=== PATIENT | male | born 1960 | race Caucasian/White ===

== ENCOUNTER 2025-06-30 09:14 | Emergency (ER) | payer OTHER, SELFPAY ==
--- OUTSIDE RECORDS SUMMARY | 2025-06-25 17:16 | XMS_ITS | Encounter Summary ---
Author Organization [facility] Address [address] [place] [address] Care Team Providers Care Software Project Engineer Name Role Phone Physician, No Pcp Primary Care Provider Unavaila ble Reason for Referral * Consultation (Routine) - Closed Specialty Diagnoses / Procedures Referred By Zully erwin Referred To Contact Family Medicine Diagnoses Encounter to establish care Albaro Leblanc MD [address] [place] [address] Phone: tel: fax: External Performed Referral ID Status Reason Start Date Expiration Date V isits Requested Visits Authorized [id number] Closed Specialty Services Required 06/25/2025 06/25/2026 1 1 Reason for Visit * Reason Comments Weakness - Generalized Coffeen lethargic on wednesday Leg Pain Lower left leg pain Encounter Details Date Type Department Care Team (Late st Contact Info) Description 06/25/2025 5:16 PM EST - 06/25/2025 6:06 PM EST Emergency [facility] Emergency [address] [place] [address] Albaro Leblanc MD [address] [place] [address] Anxiety (Primary Dx); Generalized weakness Discharge Disposition: Home or Self Care Social History Tobacco Use Types Packs/Day Years Used Date Smoking Tobacco: Never Smokeless Tobacco: Never Sex and Gender Information Value Date Recorded Sex Assigned at Not on file Legal Sex Male 5:02 PM EST Gender Identity Not on file Sexual Orientation Not on file documented as of this encounter Last Filed Vital Signs Vital Sign Reading Time Taken Comments Blood Pressure 139/95 06/25/2025 2:23 PM EST Pulse 89 06/25/2025 2:23 PM EST Temperature 36.7 C (98.1 F) 06/25/2025 2:23 PM EST Respiratory Rate 18 06/25/2025 2:23 PM EST Oxygen Saturation 95% 06/25/2025 2:23 PM EST Inhaled Oxygen Concentration - - Weight 120 kg (265 lb) 06/25/2025 2:23 PM EST Height 177.8 cm (5' 10 ) 06/25/2025 2:23 PM EST Body Mass Index 38.02 06/25/2025 2:23 PM EST documented in this encounter Discharge Instructions * Attachments The following attachments cannot be sent through Care Everywhere. * Fatigue ([place]) * Weakness: Generalized ([place]) * Anxiety: What Is It?: Video ([place]) documented in this encounter Discharge Disposition Disposition Code Departure Means Destination Comment s Home or Self Care documented in this encounter Progress Notes * Sarahi Lopez RN - 06/25/2025 6:02 PM EST 1748: EKG done with second troponin however while meeting the patient and after accomplishing thesetasks provider came in and stated no longer needed and was ok to discharge. * Saurav Echols MD - 06/25/2025 2:23 PM EST 64-year-old male with no past medical history who presents for a episode of feeling heavy while at work. Patient now states he feels fine. There is no associated chest pain shortness of breath dizziness lightheadedness tachycardia palpitations blurred vision double vision or tunnel vision. Primary concern would be for cardiac etiology, evaluate troponin and EKG. * Keisha Ngo RN - 06/25/2025 2:22 PM EST Pt to ED reports felt heavy all over and overwhelmed while at work. Denies pain at this time. Pt reports left lower leg discomfort. No injury. No redness noted at this time, skin warm, dry and pink. Pt denies any chest pain. No dizziness. No sob * Albaro Leblanc MD - 06/25/2025 2:01 PM EST HPI Chief Complaint Patient presents with Weakness - Generalized Coffeen lethargic on wednesday Leg Pain Lower left leg pain Yimi is a 64-year-old male with no known chronic medical problems who presents after an episode 3 days ago of feeling lightheaded, generalized heaviness and feeling overwhelmed. The symptoms happened 3 days ago and spontaneously subsided. He had a milder episode of the symptoms earlier today, but now he states he feels back to baseline and feels fine. Denies headache, no nasal congestion, no fevers, no ear pain, no sore throat, no chest pain, no shortness of breath, no palpitations, no abdominal pain, no urinary discomfort, no melena, no rectal bleeding, no nausea vomiting or diarrhea.Patient states he does not take any medications. Arrives alert and oriented x 4 without focal neurologic deficits. Speaking lucidly. No suicidal ideation, no homicidal ideation. Normal mood and affect in the ED. No data recorded Patient History Medical History[1] Surgical History[2] Family History[3] Social History Tobacco Use Smoking status: Never Smokeless tobacco: Never Substance Use Topics Alcohol use: Not on file Drug use: Not on file Review of Systems Review of Systems Physical Exam ED Triage Vitals [06/25/25 1423] Temp Heart Rate Resp BP 36.7 ??C (98.1 ??F) 89 18 (!) 139/95 SpO2 Temp Source Heart Rate Source Patient Position 95 % Oral -- -- BP Location FiO2 (%) -- -- Physical Exam ED Course & MDM Clinical Impressions as of 06/25/25 1748 Anxiety Generalized weakness Medical Decision Making Differential diagnosis includes cardiac etiology, psychiatric etiology, viral syndrome Patient with reassuring workup today, states he feels back to baseline. EKG nonischemic, troponin negative. Heart score 0, doubt acute coronary syndrome. Chest x-ray clear. Labs otherwise reassuring. Reevaluation, patient stable for discharge, gave patient referral to primary care. Gave patient instructions to return immediately to emergency department any worsening concerning symptoms. Patient discharged in stable condition. Amount and/or Complexity of Data Reviewed Labs: ordered. Radiology: ordered and independent interpretation performed. ECG/medicine tests: ordered and independent interpretation performed. Details: EKG ordered interpreted by me with normal sinus rhythm heart rate 92 normal intervals normal axis no ST elevation no ST depression DISPOSITION/PLAN Discharge 06/25/2025 05:46:50 PM The following medications were prescribed in order to continue the patient's treatment as an outpatient if they ultimately can be safely discharged: Your medication list You have not been prescribed any medications. FINAL IMPRESSION DIAGNOSES: 1. Anxiety 2. Generalized weakness I stressed the importance of prompt follow-up was stressed to the patient and they were advised to follow-up as below, I advised patient to return immediately to the Emergency Department with any worsening or concerning symptoms or if the patient is unable to follow up. The patient voiced understanding and agreement with plan for treatment, plan for follow up, and return precautions. Follow up with: Your primary care doctor Albaro Leblanc MD (electronically signed) 5:49 PM EST 06/25/2025 [1] Past Medical History: Diagnosis Date No pertinent past medical history [2] No past surgical history on file. [3] No family history on file. Albaro Leblanc MD 06/25/25 2480 documented in this encounter Plan of Treatment Scheduled Referrals Name Type Priority Associated Diagnoses Order Schedule Ambulatory referral to Family Practice Outpatient Referral Routine 1 Occurre nces starting 06/25/2025 until 06/25/2026 documented as of this encounter Procedures Procedure Name Priority Date/Time Associated Diagnosis Comments ECG ANNOTATED 06/26/2025 ECG 12-LEAD STAT 06/25/2025 5:48 PM EST XR CHEST 2 VIEWS STAT 06/25/2025 3:22 PM EST ECG 12-LEAD STAT 06/25/2025 2:35 PM EST TROPONIN I HIGH SENSITIVITY Timed 06/25/2025 2:30 PM EST CBC WITH AUTO DIFFERENTIAL STAT 06/25/2025 2:30 PM EST CBC AND DIFFERENTIAL STAT 06/25/2025 2:30 PM EST B-TYPE NATRIURETIC PEPTIDE STAT 06/25/2025 2:30 PM EST MAGNESIUM STAT 06/25/2025 2:30 PM EST LIPASE STAT 06/25/2025 2:30 PM EST COMPREHENSIVE METABOLIC PANEL STAT 06/25/2025 2:30 PM EST documented in this encounter Results * ECG-Annotated (06/26/2025) us Provider Ongwendolyn PEARSON ECG ORDERABLES Final Result * ECG 12 lead (06/25/2025 5:48 PM EST) Ventricular Rate ECG 87 BPM GEMUSE Atrial Rate 87 BPM GEMUSE P-R Interval 148 ms GEMUSE QRS Duration 94 ms GEMUSE Q-T Interval 376 ms GEMUSE QTc 452 ms GEMUSE P Wave [place] 28 degrees GEMUSE R [place] 2 degrees GEMUSE T [place] 10 degrees GEMUSE ECG Interpretation Normal sinus rhythm Inferior infarct (cited on or before 25-JUN-2025) Abnormal ECG When compared with ECG of 25-JUN-2025 14:35, No significant change was found Confirmed by ELIER VIRGEN ([id number]) on 06/26/2025 7:07:22 PM GEMUSE 06/25/2025 5:48 PM EST 06/26/2025 7:07 PM EST us Saurav Echols MD ECG ORDERABLES Final Result GEMUSE * XR Chest 2 Views (06/25/2025 3:22 PM EST) Anatomical Region Laterality Modality Body Radiographic Scarlet ging 06/25/2025 4:46 PM EST Impressions 06/25/2025 4:46 PM EST FINDINGS/IMPRESSION: Normal heart size and pulmonary vascularity. Lungs are clear and costophrenic angles are sharp. No acute osseous abnormality. -------- FINAL REPORT -------- Dictated By: Zaynab Bullard Dictated Date: 06/25/2025 16:46 ET Assigned Physician: Zaynab Bullard Reviewed and Electronically Signed By: Zaynab Bullard Signed Date: 06/25/2025 16:46 ET Workstation ID: [id number] Transcribed By: Self Edit Transcribed Date: 06/25/2025 16:46 ET Narrative 06/25/2025 4:46 PM EST XR CHEST 2 VIEWS INDICATION: chest pain TECHNIQUE: XR CHEST 2 VIEWS COMPARISON: None Procedure Note Zaynab Bullard MD - 06/25/2025 XR CHEST 2 VIEWS INDICATION: chest pain TECHNIQUE: XR CHEST 2 VIEWS COMPARISON: None IMPRESSION: FINDINGS/IMPRESSION: Normal heart size and pulmonary vascularity. Lungsare clear and costophrenic angles are sharp. No acute osseousabnormality. -------- FINAL REPORT -------- Dictated By: Zaynab Bullard Dictated Date: 06/25/2025 16:46 ET Assigned Physician: Zaynab Bullard Reviewed and Electronically Signed By: Zaynab Bullard Signed Date: 06/25/2025 16:46 ET Workstation ID: [id number] Transcribed By: Self Edit Transcribed Date: 06/25/2025 16:46 ET Saurav Echols MD IMG XR PROCEDURES Final Result * ECG 12 lead (06/25/2025 2:35 PM EST) Ventricular Rate ECG 92 BPM GEMUSE Atrial Rate 92 BPM GEMUSE P-R Interval 150 ms GEMUSE QRS Duration 100 ms GEMUSE Q-T Interval 374 ms GEMUSE QTc 462 ms GEMUSE P Wave [place] 43 degrees GEMUSE R [place] 29 degrees GEMUSE T [place] 24 degrees GEMUSE ECG Interpretation Normal sinus rhythm Possible Inferior infarct , age undetermined Abnormal ECG When compared with ECG of 23-AUG-2024 12:24, No significant change was found Confirmed by Jose De Jesus PARKER JAMES ([id number]) on 06/25/2025 5:49:10 PM GEMUSE 06/25/2025 2:35 PM EST 06/25/2025 5:49 PM EST us Saurav Echols MD ECG ORDERABLES Final Result GEMUSE * CBC auto differential (06/25/2025 2:30 PM EST) WBC 8.9 4.8 - 10.8 K/mcL LAB HEMETOLOGY METHOD 06/25/2025 3:03 PM [facility] RBC 4.80 4.50 - 5.50 M/mcL LAB HEMETOLOGY METHOD 06/25/2025 3:03 PM [facility] Hemoglobin 14.9 13.5 - 17.5 g/dL LAB HEMETOLOGY METHOD 06/25/2025 3:03 PM [facility] Hematocrit 43.7 42.0 - 54.0 % LAB HEMETOLOGY METHOD 06/25/2025 3:03 PM [facility] MCV 91.4 79.0 - 98.0 FL LAB HEMETOLOGY METHOD 06/25/2025 3:03 PM [facility] MCH 31.2 27.0 - 32.0 pcg LAB HEMETOLOGY METHOD 06/25/2025 3:03 PM [facility] MCHC 34.1 32.0 - 37.0 g/dL LAB HEMETOLOGY METHOD 06/25/2025 3:03 PM [facility] RDW 12.1 11.0 - 15.0 % LAB HEMETOLOGY METHOD 06/25/2025 3:03 PM [facility] Platelets 231 130 - 400 K/mcL LAB HEMETOLOGY METHOD 06/25/2025 3:03 PM [facility] MPV 8.9 7.0 - 11.0 FL LAB HEMETOLOGY METHOD 06/25/2025 3:03 PM [facility] NRBC 0.0 <1.0 % LAB HEMETOLOGY METHOD 06/25/2025 3:03 PM [facility] NRBC Absolute 0.00 <0.10 K/mcL LAB HEMETOLOGY METHOD 06/25/2025 3:03 PM [facility] Neutrophils Relative 55.0 % LAB HEMETOLOGY METHOD 06/25/2025 3:03 PM [facility] Lymphocytes Relative 35.1 % LAB HEMETOLOGY METHOD 06/25/2025 3:03 PM [facility] Monocytes Relative 6.1 % LAB HEMETOLOGY METHOD 06/25/2025 3:03 PM [facility] Eosinophils Relative 2.8 % LAB HEMETOLOGY METHOD 06/25/2025 3:03 PM [facility] Basophils Relative 0.8 % LAB HEMETOLOGY METHOD 06/25/2025 3:03 PM [facility] Immature Granulocytes Relative 0.2 % LAB HEMETOLOGY METHOD 06/25/2025 3:03 PM [facility] Neutrophils Absolute 4.87 1.50 - 7.00 K/mcL LAB HEMETOLOGY METHOD 06/25/2025 3:03 PM [facility] Lymphocytes Absolute 3.11 1.00 - 5.00 K/mcL LAB HEMETOLOGY METHOD 06/25/2025 3:03 PM [facility] Monocytes Absolute 0.54 0.20 - 1.00 K/mcL LAB HEMETOLOGY METHOD 06/25/2025 3:03 PM [facility] Eosinophils Absolute 0.25 0.00 - 0.50 K/mcL LAB HEMETOLOGY METHOD 06/25/2025 3:03 PM [facility] Basophils Absolute 0.07 0.00 - 0.20 K/mcL LAB HEMETOLOGY METHOD 06/25/2025 3:03 PM EST [facility] Immature Granulocytes Absolute 0.02 0.00 - 0.03 K/[facility] LAB HEMETOLOGY METHOD 06/25/2025 3:03 PM EST [facility] Blood Venous blood specimen / Unknown Venipuncture / Unknown 06/25/2025 2:30 PM EST 06/25/2025 2:57 PM EST Saurav Echols MD LAB BLOOD ORDERABLES Final Resu lt [facility] [address] [place] [address], [place] [phone] * Troponin I high sensitivity (06/25/2025 2:30 PM EST) High Sensitivity Troponin I <3 <=53 ng/L 06/25/2025 3:22 PM EST [facility] Blood Venous blood specimen / Unknown Venipuncture / Unknown 06/25/2025 2:30 PM EST 06/25/2025 2:57 PM EST Saurav Echols MD LAB BLOOD ORDERABLES Final Resu lt [facility] [address] [place] [address], [place] [phone] * B-type natriuretic peptide (06/25/2025 2:30 PM EST) BNP 11 <=100 pcg/mL 06/25/2025 3:22 PM EST [facility] Blood Venous blood specimen / Unknown Venipuncture / Unknown 06/25/2025 2:30 PM EST 06/25/2025 2:57 PM EST Narrative [facility] - 06/25/2025 3:22 PM EST Over the counter supplements containing high doses of biotin may interfere with this assay. If interference is suspected, patients shoud be retested after refraining from biotin supplements for 72 hours. us Saurav Echols MD LAB BLOOD ORDERABLES Final Resu lt Performing Organization Address City/[facility]/ZIP Co de Phone Number [facility] [address] [place] [address], [place] [phone] * Magnesium (06/25/2025 2:30 PM EST) Pathologist [facility] Magnesium 1.9 1.9 - 2.6 mg/dL 06/25/2025 3:25 PM EST [facility] Blood Venous blood specimen / Unknown Venipuncture / Unknown 06/25/2025 2:30 PM EST 06/25/2025 2:57 PM EST us Saurav Echols MD LAB BLOOD ORDERABLES Final Resu lt Performing Organization Address [facility]/ZIP Co de Phone Number [facility] [address] [place] [address], [place] [phone] * Lipase (06/25/2025 2:30 PM EST) [facility] Lipase 35 12 - 53 unit/L 06/25/2025 3:25 PM EST [facility] Blood Venous blood specimen / Unknown Venipuncture / Unknown 06/25/2025 2:30 PM EST 06/25/2025 2:57 PM EST us Saurav Echols MD LAB BLOOD ORDERABLES Final Resu lt Performing Organization Address City/[facility]/ZIP Co de Phone Number [facility] [address] [place] [address], [place] [phone] * (ABNORMAL) Comprehensive metabolic panel (06/25/2025 2:30 PM EST) [facility] Sodium 141 133 - 145 mmol/L 06/25/2025 3:25 PM [facility] Potassium 3.8 3.5 - 5.5 mmol/L 06/25/2025 3:25 PM [facility] Chloride 104 96 - 110 mmol/L 06/25/2025 3:25 PM [facility] CO2 25 21 - 32 mmol/L 06/25/2025 3:25 PM [facility] Anion Gap 12(H) 3 - 11 06/25/2025 3:25 PM [facility] Glucose 125(H) 70 - 100 mg/dL 06/25/2025 3:25 PM [facility] BUN 16 5 - 25 mg/dL 06/25/2025 3:25 PM [facility] Creatinine 1.07 0.70 - 1.30 mg/dL 06/25/2025 3:25 PM [facility] eGFR 78 >=60 mL/min/1. 73m2 06/25/2025 3:25 PM [facility] Comment:Calculation based on the Chronic Kidney Disease Epidemiology Collaboration (CKD-EPI) equation refit without adjustment for race. BUN/Creatinine Ratio 15.0 06/25/2025 3:25 PM [facility] Calcium 9.1 8.5 - 10.5 mg/dL 06/25/2025 3:25 PM [facility] AST (SGOT) 23 10 - 42 unit/L 06/25/2025 3:25 PM [facility] ALT (SGPT) 28 10 - 60 unit/L 06/25/2025 3:25 PM [facility] Alkaline Phosphatase 64 42 - 121 unit/L 06/25/2025 3:25 PM [facility] Total Protein 6.7 6.0 - 8.0 g/dL 06/25/2025 3:25 PM [facility] Albumin 4.2 3.2 - 5.0 g/dL 06/25/2025 3:25 PM EST [facility] Total Bilirubin 0.2 0.0 - 1.4 mg/dL 06/25/2025 3:25 PM EST [facility] Blood Venous blood specimen / Unknown Venipuncture / Unknown 06/25/2025 2:30 PM EST 06/25/2025 2:57 PM EST us Saurav Echols MD LAB BLOOD ORDERABLES Final Resu lt [facility] [address] [place] [address], [place] [phone] documented in this encounter Visit Diagnoses Diagnosis Anxiety- Primary Anxiety state, unspecified Generalized weakness documented in this encounter Care Teams Software Project Engineer Relationship Specialty Start Date End Date Physician, No Pcp PCP - General 06/25/25 documented as of this encounter
--- NOTE | ~2025-06-30 | XR_ITS ---
CLINICAL HISTORY: pain 3 view left ankle Comparison: None provided Findings: No acute fractures or dislocations. Surgical hardware in place overlying distal fibula and medial malleolus. There is radiolucency around the entry site of the medial malleolar screws. Correlate for osteomyelitis. The findings may also be related to nonspecific reactive changes or loosening. No significant loss of joint space, osteophytes, or erosions. No ankle effusion. No other radiopaque foreign body. IMPRESSION: 1. Findings at entry site of medial malleolar screws, differential considerations noted. Clinical follow-up recommended. This document has been electronically signed by: Brendon Ann MD on 06/30/2025 11:25:41
--- NOTE | ~2025-06-30 | XR_ITS ---
CLINICAL HISTORY: pain 4 view left knee Comparison: None provided Findings: No fractures or dislocations. No significant loss of joint space, osteophytes, or erosions. No joint effusion. No radiopaque foreign body. IMPRESSION: 1. No acute findings. This document has been electronically signed by: Brendon Ann MD on 06/30/2025 11:22:22
[2025-06-30 09:32] VITALS: BP 165/70; PULSE 91; RESP 18; TEMP 36.3; O2SAT 95; BMI 38.4
--- NOTE | 2025-06-30 10:15 | ED.GENADULT ---
HPI - General Adult General Chief complaint: Extremity Injury, Lower Stated complaint: left leg issue Time Seen by Provider: 06/30/25 12:51 Source: patient Mode of arrival: ambulatory Limitations: no limitations History of Present Illness ED Provider: DARIANA MORRIS PA-C HPI narrative: 64 year old female presents to the ED today for evaluation of left ankle and left knee pain x1 month. Reports previous injury to the left leg over 30 years ago which required hardware placement in the ankle. Denies new injury or trauma. He states that symptoms began when he started a new job approximately 1 month ago where he is on his feet more often. Reports taking 2 Tylenol last night without improvement in pain. He currently rates pain 1/10 to the left ankle and knee. Denies hx DM or VTE. No thinners. Denies fever, chills, numbness/tingling/weakness of the LLE, swelling or redness to the LLE, chest pain, SOB. Related Data Previous Rx's ?Medication ?Instructions ?Recorded diclofenac sodium 1 % topical gel 4 g topical QID #100 grams 06/30/25 Allergies Allergy/AdvReac Type Severity Reaction Status Date / Time No Known Allergies Allergy Verified 06/30/25 09:35 Review of Systems Review of Systems: Yes all other systems are reviewed and are negative PMFSH Past Medical History Attestation statement: The following information was validated with the patient. Source: old records reviewed and nursing notes reviewed Physical Exam ED Vital Signs: Vital Signs - 24 hr 06/30/25 09:32 06/30/25 13:18 06/30/25 13:29 Temperature 97.3 F 98.3 F 98.3 F Pulse Rate 91 74 74 Respiratory Rate 18 18 18 Blood Pressure 165/70 H 137/86 137/86 Pulse Oximetry 95 98 98 Oxygen Delivery Method Room Air Room Air Room Air BMI result Body Mass Index 38.4 hypertensive, vitals are otherwise wnl General: Well appearing, in no acute distress. Skin: Warm, dry, intact. No rashes or lesions. Head: Normocephalic, atraumatic. EENT: Hearing is intact b/l. Conjunctiva clear. PERRLA. EOM intact. Moist mucous membranes.? Cardiac: Chest wall symmetric. RRR Lungs: Normal respiratory effort without accessory muscle use. CTA bilaterally Back: No midline spinous or paraspinal tenderness. No step off deformity. Ext: +on exam of L knee and ankle, there is no overlying joint swelling or erythema, no overlying wounds. no reproducible tenderness. FROM intact to L knee, ankle, and toes without reported pain. SILT. DP/PT /popliteal pulse intact. No calf tenderness. ambulating with steady gait. Neuro: AOx3. Normal speech. Course Course Course Narrative: Rapid medical examination performed in triage by Estelle Austin PA-C: Patient is a 64 year old male presenting to the emergency department with left knee and left ankle pain. Detailed physical exam and review of systems are deferred to the commercial collections specialist. Imaging ordered. Patient placed back in the waiting room pending room availability and results. Reevaluation(s) Reevaluation #1: X-ray left ankle showing cervical hardware in place overlying distal fibula and medial malleolus with radiolucency around the entry site with a medial malleolar screws correlate for osteomyelitis however if findings may be related to nonspecific reactive changes or loosening. Patient does not have a history of diabetes. There is no overlying skin wound or cellulitic changes. I do not have concern for osteomyelitis at this time. Likely related to hardware being placed over 30 years ago. Advised pain control and outpatient follow up. Patient has remained stable throughout ED visit today. Discussed worrisome signs and symptoms and when to return to the ED. All questions answered at this time. Patient is agreeable with disposition and stable for discharge. Medications Administered Discontinued Medications Generic Name Dose Route Start Last Admin Trade Name Freq PRN Reason Stop Dose Admin Ibuprofen 800 mg 06/30/25 13:19 06/30/25 13:26 Ibuprofen 800 Mg Tablet PO 06/30/25 13:20 800 mg ONCE ONE Administration Medical Decision Making Medical Decision Making [facility] Narrative: 64 year old female presents to the ED today for evaluation of left ankle and left knee pain x1 month. vital signs stable. he is well appearing and in NAD. On exam of L knee and ankle, there is no overlying joint swelling or erythema, no overlying wounds. no reproducible tenderness. FROM intact to L knee, ankle, and toes without reported pain. SILT. DP/PT /popliteal pulse intact. No calf tenderness. Ambulating with steady gait. Differential diagnosis includes arthritis, MSK sprain/strain, hardware malfunction, fracture. Less likely gout, pseudogout. Unlikely septic joint, osteomyelitis, DVT. Plan for imaging, pain control, re-evaluation. Differential Diagnosis Differential Diagnoses: The differential diagnosis associated with the presentation includes as above. Admission/Observation not indicated. Lab Data MDM Lab Attestation statement: I reviewed the patient's lab results. as above. 06/30/25 12:25 06/30/25 12:25 Labs: Lab Results 06/30/25 Range/Units 12:25 WBC 8.5 (4.8-10.8) X10*3/uL RBC 4.99 (4.60-5.80) X10*6/uL Hgb 15.2 (14.0-18.0) g/dl Hct 45.6 (42.0-52.0) % MCV 91.4 (80.0-98.0) fL MCH 30.5 (27.0-33.0) pg MCHC 33.3 (31.0-36.0) g/dl RDW 12.4 (11.0-16.0) % Plt Count 210 (160-400) X10*3/uL MPV 8.5 L (9.4-12.4) fL Immature Gran % (Auto) 0.2 (0.0-0.4) % Neut % (Auto) 56.8 (45-73) % Lymph % (Auto) 33.3 (20-40) % [place] % (Auto) 6.2 (2-11) % Eos % (Auto) 2.6 (0-4) % Baso % (Auto) 0.9 (0-2) % Lymph # (Auto) 2.8 (1.2-4.9) X10*3/uL [place] # (Auto) 0.5 (0.1-1.2) X10*3/uL Eos # (Auto) 0.2 (0.0-0.4) X10*3/uL Baso # (Auto) 0.1 (0.0-0.2) X10*3/uL Abs Immat Gran (auto) 0.02 (0.00-0.03) X10*3/uL Absolute Neuts (auto) 4.8 (2.0-8.3) x10*3/uL Absolute Nucleated RBC 0.000 (0.0-0.012) X10*3/uL Nucleated RBC % (auto) 0.0 (0.0-0.2) /100WBC ESR 17 (1-20) MM/HR Sodium 140 (135-145) mmol/L Potassium 3.7 (3.3-5.1) mmol/L Chloride 108 (96-108) mmol/L Carbon Dioxide 24 (22-29) mmol/L Anion Gap 12 (12-20) BUN 16 (9-16) mg/dL Creatinine 1.03 (0.5-1.4) mg/dL Estim Creat Clear Calc 97.1 Estimated GFR > 60 Random Glucose 90 (60-115) mg/dL Lactic Acid 0.8 (0.5-2.0) mmol/L Calcium 9.6 (8.4-10.2) mg/dL Magnesium 2.1 (1.6-2.6) mg/dL Total Bilirubin 0.4 (0.0-1.0) mg/dL AST 33 (5-37) U/L ALT 38 (0-40) U/L Alkaline Phosphatase 61 (39-117) U/L C-Reactive Protein 0.12 (< or = 0.50) mg/dL Total Protein 7.2 (6.5-8.0) g/dL Albumin 4.6 (3.5-5.0) g/dL Independent Interpretation I performed an independent interpretation of an: Plain X-Ray Interpretation: xr L ankle without acute fracture xr L knee without acute fracture Radiology Impression Discussion of test interpretation with radiology: I have reviewed the radiologist's reading. Radiologist Impression: Procedure(s): XR ankle LT min 3V Accession Number(s): [id number] cc: Estelle Austin PA; Physician,None ~ Reason for Exam: pain ADDENDUMThis document has been electronically signed by: Brendon Ann MD on 06/30/2025 11:25:41 ADDENDUM: This report was discussed with Norman Mccabe on Jun 30, 2025 11:40:00 EST. This document has been electronically signed by: Faraz Crowe on 06/30/2025 11:40:35 Addendum Dictated By: Brendon Ann MD Addendum Signed By: <Electronically signed by Brendon Ann MD in OV> 06/30/25 1141 Addendum Cosigned By: DD/ TD/TT: 06/30/25 CLINICAL HISTORY: pain 3 view left ankle Comparison: None provided Findings: No acute fractures or dislocations. Surgical hardware in place overlying distal fibula and medial malleolus. There is radiolucency around the entry site of the medial malleolar screws. Correlate for osteomyelitis. The findings may also be related to nonspecific reactive changes or loosening. No significant loss of joint space, osteophytes, or erosions. No ankle effusion. No other radiopaque foreign body. IMPRESSION: 1. Findings at entry site of medial malleolar screws, differential considerations noted. Clinical follow-up recommended. This document has been electronically signed by: Brendon Ann MD on 06/30/2025 11:25:41 Prescription Management I considered prescription management with: Pain Medication Social Determinants Patient?s care significantly limited by Social Determinants of Health including: Other Social Determinant of Health Critical Care Time Critical Care Time Critical Care Time: No Discharge Plan Discharge Clinical Impression: Ankle pain, Knee pain Patient Disposition: Home, Self-Care Instructions: Arthritis (ED) Additional Instructions: You were evaluated in the ED today for left ankle/knee pain. As discussed, the xray of your left ankle shows loosening of the screws in your hardware. This is less likely infectious given your stable vitals and normal blood work. Your blood was sent to the lab to see if there is any bacterial growth - you will be contact in a few days with any abnormal findings that may warrant treamtent with antibiotics. This is more likely a normal finding given your history of surgery >30 years ago. I am prescribing diclofenac cream, you may apply this to your ankle and knee as needed for pain. Elevate your ankle above heart level while resting. Apply ice for 20 minutes at a time. Follow up with PCP and ortho. I have provided you with a referral, call them to establish care, they will not call you. Return with any new or worsening symptoms. In the case of an emergency call 911. Prescriptions: New diclofenac sodium 1 % gel 4 g topical QID Qty: 100 0RF Rx Instructions: apply to single knee, ankle, foot; for foot includes sole/toes/top of foot Referrals: [facility] [place] Orthopedic Surgeons [Provider Group] Physician,None [Primary Care Provider, Medical] Stand Alone Forms: Work/School Release Interventions: ED Discharge Assessment Last Done: 12/27/25 13:29 Discharge Date/Time: 06/30/25 13:30 Print Language: Syriac
[2025-06-30 12:31] LABS: MANUAL DIFF FLAG NO
[2025-06-30 12:33] LABS: Hematocrit 45.6 % (42.0-52.0); Hemoglobin 15.2 g/dl (14.0-18.0); Imm Gran Abs Auto 0.02 X10*3/uL (0.00-0.03); Imm Gran Pct Auto 0.2 % (0.0-0.4); Lymphocytes Absolute Auto 2.8 X10*3/uL (1.2-4.9); Mean Corpuscular HGB Conc 33.3 g/dl (31.0-36.0); Mean Corpuscular Hemoglobin 30.5 pg (27.0-33.0); Mean Corpuscular Volume 91.4 fL (80.0-98.0); NRBC Abs Auto 0.000 X10*3/uL (0.0-0.012); NRBC Pct Auto 0.0 /100WBC (0.0-0.2); Platelet Count 210 X10*3/uL (160-400); Red Blood Count 4.99 X10*6/uL (4.60-5.80); White Blood Count 8.5 X10*3/uL (4.8-10.8)
[2025-06-30 12:47] LABS: Alanine Aminotransferase 38 U/L (0-40); Albumin Level 4.6 g/dL (3.5-5.0); Alkaline Phosphatase 61 U/L (39-117); Anion Gap 12 (12-20); Aspartate Amino Transferase 33 U/L (5-37); Blood Urea Nitrogen 16 mg/dL (9-16); Calcium 9.6 mg/dL (8.4-10.2); Carbon Dioxide 24 mmol/L (22-29); Chloride 108 mmol/L (96-108); Creatinine Clr Calc Pharmacy 97.1; Estimated Glomerular Filt Rate > 60; Magnesium 2.1 mg/dL (1.6-2.6); Potassium 3.7 mmol/L (3.3-5.1); Sodium 140 mmol/L (135-145); Total Protein 7.2 g/dL (6.5-8.0)
--- OUTSIDE RECORDS SUMMARY | 2025-06-30 13:06 | XMS_ITS | Clinical Summary ---
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 Not on chetna e 07/02/2023 Are you concerned about learning? Not on file 07/02/2023 No 07/02/2023 No 07/02/2023 Digital Access Answer Date Recorded No 07/02/2023 No 07/02/2023 Reliable internet access at home? Not on file 07/02/2023 Device with a working camera? Not on file Sex and Gender Information Value Date Recorded Sex Assigned at Not on file Legal Sex Male 2:11 PM EDT Gender Identity Not on file Sexual Orientation Not on file Plan of Treatment Health Maintenance Due Date Last Done Comments Adult Td,Tdap Booster 1962 LIPID PANEL 1962 DEPRESSION SCREENING 1974 SMOKING Hx and SMOKELESS TOB ACCO SCREENING 1975 HEPATITIS C SCREENING 1980 HIV ONE-TIME SCREENING (18-6 5 YEARS) 1980 COLOGUARD 2007 COLONOSCOPY 2007 COLORECTAL CANCER SCREENING 2007 FIT TEST 2007 FOBT 2007 SIGMOIDOSCOPY 2007 VIRTUAL COLONOSCOPY 2007 PNEUMOCOCCAL VACCINES (50+ y ears) (1 of 1 - PCV) 2012 ZOSTER VACCINES (1 of 2) 2012 INFLUENZA VACCINE (#1) 2025 COVID-19 VACCINE ( - 2024-2 6 season) 2025 RSV VACCINE (1 - 1-dose 75+ series) 2037 HEPATITIS A VACCINES Aged Out No long er eligible based on patient's age to complete this topic HIB VACCINES Aged Out No longer eligi ble based on patient's age to complete this topic MENINGOCOCCAL VACCINES (ACWY) Aged Out No longer eligible based on patient's age to complete this topic MENINGOCOCCAL VACCINES (B) Aged Out N o longer eligible based on patient's age to complete this topic Medical Devices Not on file Additional Source Comments The information contained in this document represents components of the legal health record. It is not the complete legal health record.[facility]
--- OUTSIDE RECORDS SUMMARY | 2025-06-30 13:06 | XMS_ITS | Data Portability ---
Author Organization [facility], [address] Address [address] [place] [address] Care Team Providers Care Office Aide Name Role Phone ANN MARIE FREEMAN Bar Roller Assessment No assessment recorded. Plan of Treatment Reminders Order Date Submit Date Provider Last Modified By Organization Details Last Modified Time Details Appointments None record ed. Lab None record ed. Referral None record ed. Procedures None record ed. Surgeries None record ed. Imaging None record ed. Medication Orders None record ed. Patient TargetsNo targets recorded. Patient InstructionsNo instructions recorded. Reason for Referral None Reported. Procedures Surgical History Date Name Laterality Status Provider Name and Address Organization Details Recorded Time OC-UDS Send Out Template NON DOT completed [facility] 06/26/2022 12:10:01 Imaging Results None recorded. Procedure Notes None recorded. Medical Equipment None Reported. Vitals None Recorded Social History None recorded. Functional Status None recorded. Mental Status None recorded. Family History Nothing Reported. Medical History No medical history recorded. Past Encounters Encounter ID Performer Location Encounter Start Date Encounter Closed Date Diagnosis/Indication Diagnosis SNOMED-CT Code Diagnosis ICD10 Code Diagnosis IMO Codes Diagnosis Note [id number] [address] [place] [address] 11/03/2021 08:03:34 11/03/2021 08:47:15 [id number] [address] [place] [address] 08/20/2021 12:21:49 08/20/2021 13:43:45 [id number] [address] [place] [address] 10/01/2021 10:41:18 10/01/2021 11:32:43 [id number] [address] [facility] [place] [address] 08/27/2021 11:26:44 08/27/2021 13:30:34 [id number] NAOMI SCHILLING [place] [address] [place] [address] 06/26/2022 09:06:41 06/26/2022 14:21:31 History and physical examination, pre-employment 142672630 Z02.1 Health Concerns Section Related Observation LastModified by Organization Detai ls LastModified Time None Recorded Concern Status LastModified by Organization Details LastModified Time None Recorded Advance Directives Directive None Recorded Payers Insurance Date Sequence Insurance Name Policy Number Policy Keene Covered Member ID Keene Member ID Guarantor Name 06/03/2022 [employer] Decision One Yimi Gillis 06/26/2022 OC-ESCREEN Yimi Gillis [id number] Yimi Gillis
--- OUTSIDE RECORDS SUMMARY | 2025-06-30 13:06 | XMS_ITS | Clinical Summary ---
Author Organization [facility] Address [address] [place] [address] Phone Care Team Providers Care Rd Manager Name Role Phone Physician, No Pcp Primary Care Provider Unavaila ble Allergies No known active allergies Medications No known medications Encounters Date Type Department Care Team Description 06/25/2025 5:16 PM EST - 06/25/2025 6:06 PM EST Emergency [facility] Emergency [address] [place] [address] Albaro Leblanc MD Anxiety (Primary Dx); Generalized weakness Discharge Disposition: Home or Self Care from Last 3 Months Medical History Medical History Date Comments No pertinent past medical history Social History Tobacco Use Types Packs/Day Years Used Date Smoking Tobacco: Never Smokeless Tobacco: Never Tobacco Cessation:Counseling Given: Not Answered Sex and Gender Information Value Date Recorded Sex Assigned at Not on file Legal Sex Male 5:02 PM EST Gender Identity Not on file Sexual Orientation Not on file Last Filed Vital Signs Vital Sign Reading [...] Mass Index 38.02 06/25/2025 2:23 PM EST Plan of Treatment Health Maintenance Due Date Last Done Comments Colorectal Cancer Screening: Colonoscopy 1962 DTaP,Tdap,and Td Vaccines (1 - Tdap) 1981 Pneumococcal Vaccine: 50+ Years (1 of 1 - PCV) 2012 Zoster Vaccines (1 of 2) 2012 Depression Screening 07/05/2024 Cholesterol Screening (Lipid Panel) 08/23/2024 HIV Screening 08/23/2024 Hepatitis C Screening 08/23/2024 Social Influencers of Health Screening 08/23/2024 COVID-19 Vaccine (3 - 2024-2 6 season) 2025 12/27/2020, 12/06/2020 Influenza Vaccine (#1) 2025 RSV Immunization Adult Patients (1 - 1-dose 75+ series) 2037 HIB Vaccines Aged Out No longer eligi ble based on patient's age to complete this topic HPV Vaccines Aged Out No longer eligi ble based on patient's age to complete this topic Hepatitis A Vaccines Aged Out No long er eligible based on patient's age to complete this topic Hepatitis B Vaccines Aged Out No long er eligible based on patient's age to complete this topic IPV Vaccines Aged Out No longer eligi ble based on patient's age to complete this topic MMR Vaccines Aged Out No longer eligi ble based on patient's age to complete this topic Meningococcal ACWY Vaccine Aged Out N o longer eligible based on patient's age to complete this topic Meningococcal B Vaccine Aged Out No l onger eligible based on patient's age to complete this topic RSV Immunization Patients Under 20 months Aged Out No longer eligible b ased on patient's age to complete this topic Varicella Vaccines Aged Out No longer eligible based on patient's age to complete this topic Procedures Procedure Name Priority Date/Time Associated Diagnosis Comments ECG ANNOTATED 06/26/2025 ECG 12-LEAD STAT 06/25/2025 5:48 PM EST XR CHEST 2 VIEWS STAT 06/25/2025 3:22 PM EST ECG 12-LEAD STAT 06/25/2025 2:35 PM EST CBC WITH AUTO DIFFERENTIAL STAT 06/25/2025 2:30 PM EST B-TYPE NATRIURETIC PEPTIDE STAT 06/25/2025 2:30 PM EST MAGNESIUM STAT 06/25/2025 2:30 PM EST LIPASE STAT 06/25/2025 2:30 PM EST COMPREHENSIVE METABOLIC PANEL STAT 06/25/2025 2:30 PM EST CBC AND DIFFERENTIAL STAT 06/25/2025 2:30 PM EST TROPONIN I HIGH SENSITIVITY Timed 06/25/2025 2:30 PM EST from Last 3 Months Results * ECG-Annotated (06/26/2025) us Provider Onbase ECG ORDERABLES Final Result * ECG 12 lead (06/25/2025 5:48 PM EST) Only the most recent of2 resultswithin the time period is included. Ventricular Rate ECG 87 BPM GEMUSE Atrial Rate 87 BPM GEMUSE P-R Interval 148 ms GEMUSE QRS Duration 94 ms GEMUSE Q-T Interval 376 ms GEMUSE QTc 452 ms GEMUSE P Wave Hardin 28 degrees GEMUSE R Hardin 2 degrees GEMUSE T Hardin 10 degrees GEMUSE ECG Interpretation Normal sinus [...] Signed Date: 06/25/2025 16:46 ET Workstation ID: [id number] Transcribed By: Self Edit Transcribed Date: 06/25/2025 [...] Signed Date: 06/25/2025 16:46 ET Workstation ID: [id number] Transcribed By: Self Edit Transcribed Date: 06/25/2025 16:46 ET Saurav Echols MD IMG XR PROCEDURES Final Result * Troponin I high sensitivity (06/25/2025 2:30 PM EST) High Sensitivity Troponin I <3 <=53 ng/L 06/25/2025 3:22 PM EST [facility] Blood Venous blood specimen / Unknown Venipuncture / Unknown 06/25/2025 2:30 PM EST 06/25/2025 2:57 PM EST us Saurav Echols MD LAB BLOOD ORDERABLES Final Resu lt [facility] [address] [place] [address], * CBC auto differential (06/25/2025 2:30 PM EST) WBC 8.9 4.8 - 10.8 K/mcL LAB HEMETOLOGY METHOD 06/25/2025 3:03 PM [facility] RBC 4.80 4.50 - 5.50 M/mcL LAB HEMETOLOGY METHOD 06/25/2025 3:03 PM [facility] Hemoglobin 14.9 13.5 - 17.5 g/dL LAB HEMETOLOGY METHOD 06/25/2025 3:03 PM [facility] Hematocrit 43.7 42.0 - 54.0 % LAB HEMETOLOGY METHOD 06/25/2025 3:03 PM [facility] MCV 91.4 79.0 - 98.0 FL LAB HEMETOLOGY METHOD 06/25/2025 3:03 PM [facility] MCH 31.2 27.0 - 32.0 pcg LAB HEMETOLOGY METHOD 06/25/2025 3:03 PM [facility] MCHC 34.1 32.0 - 37.0 g/dL LAB HEMETOLOGY METHOD 06/25/2025 3:03 PM [facility] RDW 12.1 11.0 - 15.0 % LAB HEMETOLOGY METHOD 06/25/2025 3:03 PM [facility] Platelets 231 130 - 400 K/mcL LAB HEMETOLOGY METHOD 06/25/2025 3:03 PM [facility] MPV 8.9 7.0 - 11.0 FL LAB HEMETOLOGY METHOD 06/25/2025 3:03 PM [facility] NRBC 0.0 <1.0 % LAB HEMETOLOGY METHOD 06/25/2025 3:03 PM [facility] NRBC Absolute 0.00 <0.10 K/mcL LAB HEMETOLOGY METHOD 06/25/2025 3:03 PM [facility] Neutrophils Relative 55.0 % LAB HEMETOLOGY METHOD 06/25/2025 3:03 PM [facility] Lymphocytes Relative 35.1 % LAB HEMETOLOGY METHOD 06/25/2025 3:03 PM [facility] Monocytes Relative 6.1 % LAB HEMETOLOGY METHOD 06/25/2025 3:03 PM [facility] Eosinophils Relative 2.8 % LAB HEMETOLOGY METHOD 06/25/2025 3:03 PM [facility] Basophils Relative 0.8 % LAB HEMETOLOGY METHOD 06/25/2025 3:03 PM [facility] Immature Granulocytes Relative 0.2 % LAB HEMETOLOGY METHOD 06/25/2025 3:03 PM [facility] Neutrophils Absolute 4.87 1.50 - 7.00 K/mcL LAB HEMETOLOGY METHOD 06/25/2025 3:03 PM [facility] Lymphocytes Absolute 3.11 1.00 - 5.00 K/mcL LAB HEMETOLOGY METHOD 06/25/2025 3:03 PM [facility] Monocytes Absolute 0.54 0.20 - 1.00 K/mcL LAB HEMETOLOGY METHOD 06/25/2025 3:03 PM [facility] Eosinophils Absolute 0.25 0.00 - 0.50 K/mcL LAB HEMETOLOGY METHOD 06/25/2025 3:03 PM [facility] Basophils Absolute 0.07 0.00 - 0.20 K/mcL LAB HEMETOLOGY METHOD 06/25/2025 3:03 PM [facility] Immature Granulocytes Absolute 0.02 0.00 - 0.03 K/mcL LAB HEMETOLOGY METHOD 06/25/2025 3:03 PM EST [facility] Blood Venous blood specimen / Unknown Venipuncture / Unknown 06/25/2025 2:30 PM EST 06/25/2025 2:57 PM EST us Saurav Echols MD LAB BLOOD ORDERABLES Final Resu lt Performing Organization Address [facility] de Phone Number [facility] [address] [place] [address], * B-type natriuretic peptide (06/25/2025 2:30 PM EST) BNP 11 <=100 pcg/mL 06/25/2025 3:22 PM EST [facility] Blood Venous blood specimen / Unknown Venipuncture / Unknown 06/25/2025 2:30 PM EST 06/25/2025 2:57 PM EST Narrative [facility] - 06/25/2025 3:22 PM EST Over the counter supplements containing high doses of biotin may interfere with this assay. If interference is suspected, patients shoud be retested after refraining from biotin supplements for 72 hours. us Saurav Echols MD LAB BLOOD ORDERABLES Final Resu lt Performing Organization Address [facility] Co de Phone Number [facility] [address] [place] [address], [place] [phone] * Magnesium (06/25/2025 2:30 PM EST) Magnesium 1.9 1.9 - 2.6 mg/dL 06/25/2025 3:25 PM EST [facility] Blood Venous blood specimen / Unknown Venipuncture / Unknown 06/25/2025 2:30 PM EST 06/25/2025 2:57 PM EST us Saurav Echols MD LAB BLOOD ORDERABLES Final Resu lt Performing Organization Address City/[facility]/ZIP Co de Phone Number [facility] [address] [place] [address], [place] [phone] * Lipase (06/25/2025 2:30 PM EST) Lipase 35 12 - 53 unit/L 06/25/2025 3:25 PM [facility] Blood Venous blood specimen / Unknown Venipuncture / Unknown 06/25/2025 2:30 PM EST 06/25/2025 2:57 PM EST us Saurav Echols MD LAB BLOOD ORDERABLES Final Resu lt Performing Organization Address [facility]/ZIP Co de Phone Number [facility] [address] [place] [address], [place] [phone] * (ABNORMAL) Comprehensive metabolic panel (06/25/2025 2:30 PM EST) Sodium 141 133 - 145 mmol/L 06/25/2025 3:25 PM [facility] Potassium 3.8 3.5 - 5.5 mmol/L 06/25/2025 3:25 PM [facility] Chloride 104 96 - 110 mmol/L 06/25/2025 3:25 PM [facility] CO2 25 21 - 32 mmol/L 06/25/2025 3:25 PM [facility] Anion Gap 12(H) 3 - 11 06/25/2025 3:25 PM [facility] Glucose 125(H) 70 - 100 mg/dL 06/25/2025 3:25 PM [facility] BUN 16 5 - 25 mg/dL 06/25/2025 3:25 PM [facility] Creatinine 1.07 0.70 - 1.30 mg/dL 06/25/2025 3:25 PM [facility] eGFR 78 >=60 mL/min/1. 73m2 06/25/2025 3:25 PM [facility] Comment:Calculation based on the Chronic Kidney Disease Epidemiology Collaboration (CKD-EPI) equation refit without adjustment for race. BUN/Creatinine Ratio 15.0 06/25/2025 3:25 PM [facility] Calcium 9.1 8.5 - 10.5 mg/dL 06/25/2025 3:25 PM [facility] AST (SGOT) 23 10 - 42 unit/L 06/25/2025 3:25 PM [facility] ALT (SGPT) 28 10 - 60 unit/L 06/25/2025 3:25 PM [facility] Alkaline Phosphatase 64 42 - 121 unit/L 06/25/2025 3:25 PM [facility] Total Protein 6.7 6.0 - 8.0 g/dL 06/25/2025 3:25 PM [facility] Albumin 4.2 3.2 - 5.0 g/dL 06/25/2025 3:25 PM [facility] Total Bilirubin 0.2 0.0 - 1.4 mg/dL 06/25/2025 3:25 PM [facility] Blood Venous blood specimen / Unknown Venipuncture / Unknown 06/25/2025 2:30 PM EST 06/25/2025 2:57 PM EST us Saurav Echols MD LAB BLOOD ORDERABLES Final Resu lt [facility] [address] [place] [address], [place] [phone] from Last 3 Months Insurance [facility] MEDICAID [employer]AGE [address] [place] [address] Manager Relationship Specialty Start Date End Date Physician, No Pcp PCP - General 06/25/25
[2025-06-30 13:18] VITALS: BP 137/86; PULSE 74; RESP 18; TEMP 36.8; O2SAT 98
[2025-06-30 13:29] VITALS: BP 137/86; PULSE 74; RESP 18; TEMP 36.8; O2SAT 98
== END 2025-06-30 13:30 | disposition home or self-care (01) ==
PROVIDERS: Physician Assistant Medical; Emergency Provider Emergency Medicine
DX: M25.572 Pain in left ankle and joints of left foot (principal); M25.562 Pain in left knee
CPT/HCPCS: 36415; 73562; 73610; 80053; 83605; 83735; 85025; 85652; 86140; 87040; 99283; 99284

== ENCOUNTER → 2025-06-30 10:15 | Outpatient (BNV) | payer OTHER, SELFPAY | PROVIDERS: Visit Provider Specialist | DX: M25.561 Pain in right knee (principal); M25.572 Pain in left ankle and joints of left foot | CPT/HCPCS: 73562; 73610 ==